=== PATIENT | male | born 1990 | race Caucasian/White ===

== ENCOUNTER 2016-10-04 16:27 | Emergency (ER) | payer SELFPAY ==
[2016-10-04 16:52] VITALS: BP 148/82
--- NOTE | 2016-10-04 17:01 | EDM.PDOC ---
ED HPI GENERAL MEDICAL PROBLEM - General Chief Complaint: General Stated Complaint: TICK BITE,HEADACHE Time Seen by Provider: 10/04/16 16:56 Source of Information: Reports: Patient, Family History Limitations: Reports: No Limitations - History of Present Illness INITIAL COMMENTS - FREE TEXT/NARRATIVE: pt arrived with 2 lesions which are very suspicious for target lesions. They did just appear about 24 hours ago. The pt works in the [employer]. He has had several ticks on during the summer but none recent. He has a headache and he has achy joints. Onset: Other (last nite. ) Duration: Hour(s): Location: Reports: Head, Neck, Other (multiple joint pain. ) Associated Symptoms: Reports: No Other Symptoms HEADACHE Pain Score (Numeric/FACES): 6 - Related Data Allergies Allergy/AdvReac Type Severity Reaction Status Date / Time No Known Allergies Allergy Verified 10/04/16 16:42 Home Meds: Home Meds NK [No Known Home Meds] 10/04/16 [History] Past Medical History - Past Health History Medical/Surgical History: Denies Medical/Surgical History Social & Family History - Tobacco Use Smoking Status *Q: Current Every Day Smoker Years of Tobacco use: 1 Packs/Tins Daily: 5 - Recreational Drug Use Recreational Drug Type: Reports: Marijuana/Hashish Recreational Drug Use Frequency: Daily ED ROS GENERAL - Review of Systems Review Of Systems: See Below Constitutional: Reports: Fatigue, Other (joint pain) HEENT: Reports: No Symptoms Respiratory: Reports: No Symptoms Cardiovascular: Reports: No Symptoms Endocrine: Reports: No Symptoms GI/Abdominal: Reports: No Symptoms : Reports: No Symptoms Musculoskeletal: Reports: Neck Pain, Back Pain, Joint Pain Skin: Reports: Other ( target lesions. ) ED EXAM, GENERAL - Physical Exam Exam: See Below Free Text/Narrative:: pt is having a headache, joint pain, and back and neck pain. Exam Limited By: No Limitations General Appearance: Alert, Anxious, Mild Distress Ears: Normal TMs Throat/Mouth: Normal Inspection Head: Atraumatic Neck: Tender Lateral Respiratory/Chest: No Respiratory Distress Cardiovascular: Regular Rate, Rhythm GI/Abdominal: Soft, Non-Tender (Male) Exam: Deferred Rectal (Males) Exam: Deferred Back Exam: Vertebral Tenderness Extremities: Normal Inspection Neurological: Alert, Oriented Psychiatric: Normal Affect Skin Exam: Other (pt has 2 target like lesions. ) Course - Vital Signs Last Recorded V/S: Last Vital Signs Temp 36.2 C 10/04/16 16:41 Pulse 81 10/04/16 16:41 Resp 16 10/04/16 16:41 BP 148/82 H 10/04/16 16:41 Pulse Ox 100 10/04/16 16:41 Departure - Departure Time of Disposition: 17:02 Disposition: Home, Self-Care 01 Condition: Fair Clinical Impression: Acute Lyme disease - Discharge Information Instructions: Lyme Disease Referrals: PCP,None [Primary Care Provider] - Forms: ED Department Discharge Care Plan Goals: will notify of lab results, doxycyline 100mg bid for 2 weeks
== END 2016-10-04 17:09 | disposition home or self-care (01) ==
LOC: JP.ED 16:27
DX: A69.20 Lyme disease, unspecified (principal); F17.210 Nicotine dependence, cigarettes, uncomplicated
CPT/HCPCS: 36415; 86617; 86617-59; 86618; 86666; 86666-59; 86753; 99284

== ENCOUNTER 2019-08-01 14:53 | Emergency (ER) | payer MEDICAID ==
[2019-08-01 15:27] VITALS: BP 131/77; PULSE 92
--- NOTE | 2019-08-01 15:38 | EDM.PDOC ---
ED HPI GENERAL MEDICAL PROBLEM - General Chief Complaint: Lower Extremity Injury/Pain Stated Complaint: STUBBED RIGHT LARGE TOE BROKEN? Time Seen by Provider: 08/01/19 15:30 Source of Information: Reports: Patient History Limitations: Reports: No Limitations - History of Present Illness INITIAL COMMENTS - FREE TEXT/NARRATIVE: Jacinto is a 28 year old male, presents to the ED with right foot pain and redness/swelling progressive over the last couple of days. Pain improves mildly with ibuprofen and elevation, worse with ambulation. Patient denies any fever/chills/nausea/vomiting. Patient did start an antibiotic for a fish hook injury to his finger yesterday but he and his mother have no idea which antibiotic it was. Onset: Gradual Duration: Day(s): (2) Right Feet Pain Score (Numeric/FACES): 6 - Related Data Allergies Allergy/AdvReac Type Severity Reaction Status Date / Time No Known Allergies Allergy Verified 08/01/19 15:26 Home Meds: Home Meds NK [No Known Home Meds] 10/04/16 [History] Past Medical History - Past Health History Medical/Surgical History: Denies Medical/Surgical History HEENT History: Reports: Impaired Vision - Past Surgical History Head Surgeries/Procedures: Reports: None HEENT Surgical History: Reports: None Dermatological Surgical History: Reports: None Social & Family History - Tobacco Use Smoking Status *Q: Current Every Day Smoker Years of Tobacco use: 6 Packs/Tins Daily: 0.5 Used Tobacco, but Quit: No Second Hand Smoke Exposure: No - Caffeine Use Caffeine Use: Reports: Coffee - Recreational Drug Use Recreational Drug Use: Yes Drug Use in Last 12 Months: Yes Recreational Drug Type: Reports: Marijuana/Hashish Recreational Drug Use Frequency: Daily Review of Systems - Review of Systems Review Of Systems: Comprehensive ROS is negative, except as noted in HPI. ED EXAM, GENERAL - Physical Exam Exam: See Below Exam Limited By: No Limitations General Appearance: Alert, WD/WN, No Apparent Distress Nose: Normal Inspection Throat/Mouth: Normal Inspection Head: Atraumatic Neck: Normal Inspection Respiratory/Chest: No Respiratory Distress Cardiovascular: Normal Peripheral Pulses Extremities: Other (right foot dorsal aspect, distal swelling and erythema, pedal pulses intact, full ROM of digits. no streaking proximally) Neurological: Alert, Oriented Psychiatric: Normal Affect Course - Vital Signs Last Recorded V/S: Last Vital Signs Temp 36.9 C 08/01/19 15:30 Pulse 92 08/01/19 15:30 Resp 16 08/01/19 15:30 BP 131/77 08/01/19 15:30 Pulse Ox 97 08/01/19 15:30 Jacinto is a 28 year old male, presents with progressive right foot redness/swelling and pain. Please refer to HPI and focused exam. Patient arrives here hemodynamically stable, afebrile. Foot exam consistent with cellulitis, no focal abscess that would require I and D appreciated. Xray obtained to rule out any bony abnormality and is negative. JAREN wrap applied for compression. I am unsure what the antibiotic was that patient started therefore I am going to start him on Bactrim. He was instructed to discontinue other antibiotic. Ibuprofen/Tylenol per bottle instructions. Rest, ice, elevation encouraged. Follow up with PCP next week for recheck. Reasons to return to the ED discussed, patient agreeable to plan of care and discharged in stable condition with his mom. - Orders/Labs/Meds Orders: Active Orders 24 hr Category Date Time Status Foot Comp Min 3V Rt [CR] Stat Exams 08/01/19 15:02 Taken Departure - Departure Time of Disposition: 16:30 Disposition: Home, Self-Care 01 Condition: Good Clinical Impression: Cellulitis of right foot without toes - Discharge Information Instructions: Cellulitis, Adult, [id number] Referrals: PCP,None [Primary Care Provider] - Forms: ED Department Discharge Additional Instructions: Your Xray looks normal Keep foot elevated as much as possible. Start Bactrim today and take as directed. Stop whatever other antibiotic you were prescribed unless on the off chance it is Bactrim. The redness may spread for another 24 hours, however, if you develop streaking up the leg or fever/nausea/chills I want you back here. Take scheduled Ibuprofen 600 mg every 6 hours for the next couple of day which will help with the swelling and pain. Tylenol 650 mg every 4 hours as needed. Ice for 20 minutes at a time every 3-4 hours for the next couple of days. Sepsis Event Note (ED) - Evaluation Sepsis Screening Result: No Definite Risk - Focused Exam Vital Signs: Vital Signs Temp Pulse Resp BP Pulse Ox 08/01/19 15:30 36.9 C 92 16 131/77 97 08/01/19 15:25 36.9 C 92 16 131/77 97 - My Orders Last 24 Hours: My Active Orders 08/01/19 15:02 Foot Comp Min 3V Rt [CR] Stat - Assessment/Plan Last 24 Hours: My Active Orders 08/01/19 15:02 Foot Comp Min 3V Rt [CR] Stat
--- NOTE | 2019-08-04 08:56 | CR ---
FOOT RIGHT 3 views CLINICAL HISTORY:Pain FINDINGS:There is soft tissue swelling at the first MTP joint. There is periarticular ossification at the distal metatarsal. No fracture is identified. Impression: Moderate soft tissue swelling at the first MTP joint with periarticular calcification or ossification. This is likely an inflammatory process such as gout. Infection is not excluded
== END 2019-08-01 16:29 | disposition home or self-care (01) ==
LOC: JP.ED 14:53
DX: L03.115 Cellulitis of right lower limb (principal); F17.210 Nicotine dependence, cigarettes, uncomplicated
CPT/HCPCS: 73630-26-RT; 73630-RT; 99283

== ENCOUNTER 2020-09-24 01:37 | Emergency (ER) | payer MEDICAID ==
[2020-09-24] MEDS ORDERED: Sodium Chloride 0.9% 10 ML Syringe FLUSH PRN (01:50)
[2020-09-24] MEDS ORDERED: Ketorolac 30 MG/ML SDV IVPUSH ONE (01:52)
--- NOTE | 2020-09-24 02:06 | EDM.PDOC ---
ED HPI GENERAL MEDICAL PROBLEM - General Chief Complaint: Lower Extremity Injury/Pain Stated Complaint: RIGHT ANKLE INJURY Time Seen by Provider: 09/24/20 01:48 Source of Information: Reports: Patient History Limitations: Reports: No Limitations - History of Present Illness INITIAL COMMENTS - FREE TEXT/NARRATIVE: Jacinto is a 30-year-old male presenting to the ED for evaluation of a red, painful, very swollen medial right ankle. The patient states that the symptoms started 2 days ago with a small area of redness but over the last 24 hours it is becoming much larger, painful, hot and swollen. Patient has had a couple small blisters that it formed at the top of the wound, ruptured, and already starting to endothelialize. He denies any fever or chills. He has significant pain with walking. He thought he might have been bit by something 2 days ago setting off the redness. He has no allergies. right ankle Pain Score (Numeric/FACES): 9 - Related Data Allergies Allergy/AdvReac Type Severity Reaction Status Date / Time No Known Allergies Allergy Verified 09/24/20 01:46 Home Meds: Home Meds Buprenorphine HCl/Naloxone HCl [Suboxone 4 mg-1 mg Sl Film] 2 each SL DAILY 09/24/20 [History] Escitalopram [Lexapro] 20 mg PO DAILY 09/24/20 [History] Past Medical History - Past Health History Medical/Surgical History: Denies Medical/Surgical History HEENT History: Reports: Impaired Vision - Past Surgical History Head Surgeries/Procedures: Reports: None HEENT Surgical History: Reports: None Dermatological Surgical History: Reports: None Social & Family History - Tobacco Use Tobacco Use Status *Q: Current Every Day Tobacco User Years of Tobacco use: 10 Packs/Tins Daily: 1 - Caffeine Use Caffeine Use: Reports: Coffee, Energy Drinks, Soda, Tea - Recreational Drug Use Recreational Drug Use: Yes Drug Use in Last 12 Months: Yes Recreational Drug Type: Reports: Marijuana/Hashish Recreational Drug Use Frequency: Daily Review of Systems - Review of Systems Review Of Systems: See Below Constitutional: Reports: No Symptoms Respiratory: Reports: No Symptoms Cardiovascular: Reports: No Symptoms GI/Abdominal: Reports: No Symptoms Musculoskeletal: Reports: Foot Pain (Right foot and ankle pain) Skin: Reports: Erythema (8 x 9 cm area of redness on the medial right ankle), Wound Neurological: Reports: No Symptoms ED EXAM, GENERAL - Physical Exam Exam: See Below Exam Limited By: No Limitations General Appearance: Alert, Anxious, Moderate Distress Head: Atraumatic Extremities: Limited Range of Motion (Pain with movement of the right ankle.), Increased Warmth, Redness (Significant swelling and redness of the skin over the medial malleolus) Neurological: Alert, Oriented, Normal Cognition, No Motor/Sensory Deficits Psychiatric: Anxious Skin Exam: Erythema (8 cm x 9 cm area of erythema over the medial malleolus with edema, erythema, increased temperature, and tenderness to palpation. The area is very indurated. There were 2 areas of blistering at the top of the wound which have since unroofed and are now starting to heal.), Increased Warmth Lymphatic: No Adenopathy Course - Vital Signs Last Recorded V/S: Last Vital Signs Temp 36.6 C 09/24/20 01:47 Pulse 98 09/24/20 01:47 Resp 16 09/24/20 01:47 BP 135/88 09/24/20 01:47 Pulse Ox 99 09/24/20 01:47 - Orders/Labs/Meds Orders: Active Orders 24 hr Category Date Time Status Ankle Min 3V Rt [CR] Stat Exams 09/24/20 01:50 Ordered CULTURE BLOOD [BC] Urgent Lab 09/24/20 01:51 Ordered CULTURE BLOOD [BC] Urgent Lab 09/24/20 01:51 Ordered Sodium Chloride 0.9% [Saline Flush] Med 09/24/20 01:50 Ordered 10 ml FLUSH ASDIRECTED PRN Vancomycin 1.5 gm Med 09/24/20 01:51 Ordered Sodium Chloride 0.9% [Normal Saline] 250 ml IV ONETIME Blood Culture x2 Reflex Set [OM.PC] Urgent Oth 09/24/20 01:50 Ordered Saline Lock Insert [OM.PC] Routine Oth 09/24/20 01:50 Ordered Medication Orders Vancomycin HCl 1.5 gm/ Sodium (Chloride) 250 mls @ 150 mls/hr IV ONETIME STA Stop: 09/24/20 03:30 Last Admin: 09/24/20 02:22 Dose: 150 mls/hr Documented by: Sodium Chloride (Sodium Chloride 0.9% 10 Ml Syringe) 10 ml FLUSH ASDIRECTED PRN PRN Reason: Keep Vein Open Last Admin: 09/24/20 01:57 Dose: 10 ml Documented by: Labs: Laboratory Tests 09/24/20 09/24/20 Range/Units 01:58 01:58 WBC 7.8 (4.5-11.0) K/uL RBC 4.07 L (4.30-5.90) M/uL Hgb 12.9 (12.0-15.0) g/dL Hct 37.4 L (40.0-54.0) % MCV 92 (80-98) fL MCH 32 H (27-31) pg MCHC 35 (32-36) % Plt Count 311 (150-400) K/uL Neut % (Auto) 55.0 (36-66) % Lymph % (Auto) 28.1 (24-44) % [place] % (Auto) 12.9 H (2-6) % Eos % (Auto) 3.5 (2-4) % Baso % (Auto) 0.5 (0-1) % Sodium 141 (140-148) mmol/L Potassium 3.8 (3.6-5.2) mmol/L Chloride 101 (100-108) mmol/L Carbon Dioxide 29 (21-32) mmol/L Anion Gap 10.6 (5.0-14.0) mmol/L BUN 18 (7-18) mg/dL Creatinine 1.0 (0.8-1.3) mg/dL Est Cr Clr Drug Dosing 116.82 mL/min Estimated GFR (MDRD) > 60 (>60) Glucose 88 (74-106) mg/dL Calcium 9.0 (8.5-10.1) mg/dL C-Reactive Protein 2.89 H (0.0-0.3) mg/dL Meds: Medications Generic Name Dose Route Start Last Admin Trade Name Freq PRN Reason Stop Dose Admin Vancomycin HCl 1.5 gm/ Sodium 250 mls @ 150 mls/hr 09/24/20 01:51 09/24/20 02:22 Chloride IV 09/24/20 03:30 150 mls/hr ONETIME STA Administration Sodium Chloride 10 ml 09/24/20 01:50 09/24/20 01:57 Sodium Chloride 0.9% 10 Ml Syringe FLUSH 10 ml ASDIRECTED PRN Administration Keep Vein Open Discontinued Medications Generic Name Dose Route Start Last Admin Trade Name Freq PRN Reason Stop Dose Admin Ketorolac Tromethamine 30 mg 09/24/20 01:52 09/24/20 01:57 Ketorolac 30 Mg/Ml Sdv IVPUSH 09/24/20 01:53 30 mg ONETIME ONE Administration - Re-Assessments/Exams Free Text/Narrative Re-Assessment/Exam: 09/24/20 02:29 Jacinto is a 30-year-old male presenting to the ED with what appears to be a cellulitis on the medial aspect of the right ankle. X-rays were obtained of the ankle and did not show any evidence for osteomyelitis. CBC was obtained showing a leukocyte count of 7.8 with a normal differential. Basic metabolic profile is normal and the C-reactive protein is elevated at 2.89. Blood cultures x2 have been obtained. We initiated IV antibiotics with vancomycin 1500 mg. In addition, the patient was given Toradol 30 mg IV for pain. I will likely continue his outpatient medicine management with Bactrim double strength 1 tablet twice daily for 10 days and cephalexin 500 mg 4 times daily for 10 days to cover for MRSA and other skin royer. Certainly if anything grows out and the wound cultures we will adjust the antibiotic to cover. In addition, I will prescribe Toradol 10 mg 4 times daily as needed for pain control. Departure - Departure Time of Disposition: 03:25 Disposition: Home, Self-Care 01 Clinical Impression: Cellulitis of right ankle - Discharge Information Instructions: Cellulitis, Adult Referrals: Tara Singh PA-C [Primary Care Provider] - Forms: ED Department Discharge Care Plan Goals: You have a significant infection that is limited to the skin at this time. There is no evidence that this is extended to the bone. We initiated your antibiotics with IV vancomycin and we will continue this as an outpatient with oral Bactrim double strength 1 tablet twice daily for 10 days and cephalexin 500 mg 4 times a day for 10 days. I have also included a prescription for Toradol 10 mg 4 times a day as needed for pain control. I would recommend keeping the ankle elevated to help reduce swelling and pain. Please try not to scratch or rub the wound. If it continues to worsen we may have to consider admitting you to the hospital for IV antibiotics or least arranging for outpatient IV antibiotics every 12 hours. Sepsis Event Note (ED) - Evaluation Sepsis Screening Result: No Definite Risk - Focused Exam Vital Signs: Vital Signs Temp Pulse Resp BP Pulse Ox 09/24/20 01:47 36.6 C 98 16 135/88 99 - Problem List & Annotations (1) Cellulitis of right ankle SNOMED Code(s): 74635518098434274 Code(s): L03.115 - CELLULITIS OF RIGHT LOWER LIMB Status: Acute Priority: Medium Current Visit: Yes - Problem List Review Problem List Initiated/Reviewed/Updated: Yes - My Orders Last 24 Hours: My Active Orders 09/24/20 01:50 Ankle Min 3V Rt [CR] Stat Sodium Chloride 0.9% [Saline Flush] 10 ml FLUSH ASDIRECTED PRN Blood Culture x2 Reflex Set [OM.PC] Urgent Saline Lock Insert [OM.PC] Routine 09/24/20 01:51 CULTURE BLOOD [BC] Urgent CULTURE BLOOD [BC] Urgent 09/24/20 01:51 Vancomycin 1.5 gm Sodium Chloride 0.9% [Normal Saline] 250 ml IV ONETIME - Assessment/Plan Last 24 Hours: My Active Orders 09/24/20 01:50 Ankle Min 3V Rt [CR] Stat Sodium Chloride 0.9% [Saline Flush] 10 ml FLUSH ASDIRECTED PRN Blood Culture x2 Reflex Set [OM.PC] Urgent Saline Lock Insert [OM.PC] Routine 09/24/20 01:51 CULTURE BLOOD [BC] Urgent CULTURE BLOOD [BC] Urgent 09/24/20 01:51 Vancomycin 1.5 gm Sodium Chloride 0.9% [Normal Saline] 250 ml IV ONETIME
[2020-09-24 02:14] VITALS: BP 135/88; PULSE 98
--- NOTE | 2020-09-24 09:00 | CR ---
Ankle Min 3V Rt CLINICAL HISTORY: Evaluate for osteomyelitis FINDINGS: The soft tissues are swollen over the medial aspect. No osseous lesion is seen. There is a tiny linear opacity in the soft tissue swelling near the medial malleolus. This may be a foreign body. Impression: Soft tissue swelling No osseous lesion Possible foreign body is described above
== END 2020-09-24 04:06 | disposition home or self-care (01) ==
LOC: JP.ED 01:37
DX: L03.115 Cellulitis of right lower limb (principal); Z72.0 Tobacco use
CPT/HCPCS: 36415; 73610; 80048; 85025; 86140; 87040; 96365; 96366; 96375; 99283; J1885; J3370; J7050

== ENCOUNTER 2021-07-15 07:18 | Emergency (ER) | payer MEDICAID ==
[2021-07-15 07:28] VITALS: BP 136/79; PULSE 71
== END 2021-07-15 08:03 | disposition home or self-care (01) ==
LOC: JP.ED 07:18
DX: L23.7 Allergic contact dermatitis due to plants, except food (principal); F17.210 Nicotine dependence, cigarettes, uncomplicated; Z79.899 Other long term (current) drug therapy
CPT/HCPCS: 99283

== ENCOUNTER 2022-06-08 17:33 | Emergency (ER) | payer MEDICAID ==
[2022-06-08 18:13] VITALS: BP 134/85; PULSE 66
[2022-06-08] MEDS ORDERED: Ketorolac 30 MG/ML SDV IM ONE (18:15)
[2022-06-08] MEDS ORDERED: Amoxicillin/Clavulanate K 875-125 MG Tab PO ONE (18:15)
== END 2022-06-08 18:47 | disposition home or self-care (01) ==
LOC: JP.ED 17:33
DX: K02.9 Dental caries, unspecified (principal); Z72.0 Tobacco use
CPT/HCPCS: 96372; 99282; A9270; J1885

== ENCOUNTER 2022-10-12 13:04 | Emergency (ER) | payer MEDICAID | END 2022-10-12 13:46 | disposition left against medical advice (07) | LOC: JP.ED 13:04 | DX: Z53.21 Procedure and treatment not carried out due to patient leaving prior to being seen by health care provider (principal) ==

== ENCOUNTER 2022-11-05 21:32 | Emergency (ER) | payer MEDICAID ==
[2022-11-06 00:15] VITALS: BP 143/93; PULSE 65
== END 2022-11-06 00:14 | disposition home or self-care (01) ==
LOC: JP.ED 21:32
DX: K04.7 Periapical abscess without sinus (principal); F17.210 Nicotine dependence, cigarettes, uncomplicated
CPT/HCPCS: 41800; 99282; 99283

== ENCOUNTER 2023-11-22 12:46 | Emergency (ER) | payer MEDICAID ==
[2023-11-22 12:55] VITALS: BP 132/80; PULSE 73
== END 2023-11-22 13:30 | disposition home or self-care (01) ==
LOC: JP.ED 12:46
DX: L03.116 Cellulitis of left lower limb (principal); F17.210 Nicotine dependence, cigarettes, uncomplicated; Z86.16 Personal history of COVID-19; Z79.899 Other long term (current) drug therapy
CPT/HCPCS: 99283